=== PATIENT | female | born 1980 | race Caucasian/White ===

== ENCOUNTER 2023-12-02 00:45 | Emergency (ER) | payer BC ==
[2023-12-02] MEDS ORDERED: Aspirin 81 MG Tab.Chew PO ONE (01:01)
[2023-12-02] MEDS ORDERED: Sodium Chloride 0.9% 10 ML Syringe FLUSH PRN (01:01)
[2023-12-02] MEDS ORDERED: Morphine 4 MG/ML Syringe IVPUSH PRN (01:01)
[2023-12-02] MEDS ORDERED: Nitroglycerin 0.4 MG Tab.SL SL PRN (01:01)
[2023-12-02 01:09] LABS: BASOPHILS ABSOLUTE AUTO 0.03 K/uL (0.00-0.10); BASOPHILS PERCENT AUTO 0.4 % (0.1-1.3); CREATININE 0.9 mg/dL (0.6-1.0); EOSINOPHILS ABSOLUTE AUTO 0.24 K/uL (0.00-0.40); EOSINOPHILS PERCENT AUTO 3.2 % (0.0-5.4); ESTIMATED GFR 80 mL/min (>60); HEMATOCRIT 42.2 % (34.3-46.0); IMMATURE GRAN ABSOLUTE AUTO 0.04 K/uL (0.00-0.23); IMMATURE GRAN PERCENT AUTO 0.5 % (0.0-0.7); LYMPHOCYTES ABSOLUTE AUTO 2.99 K/uL (0.8-3.3); LYMPHOCYTES PERCENT AUTO 40.3 % (11.4-47.7); MEAN CORPUSCULAR HEMOGLOBIN 30.8 pg (31.6-35.5); MEAN CORPUSCULAR HGB CONC 33.2 g/dL (31.6-35.5); MONOCYTES ABSOLUTE AUTO 0.35 K/uL (0.20-0.90); MONOCYTES PERCENT AUTO 4.7 % (3.3-12.6); NEUTROPHILS ABSOLUTE AUTO 3.77 K/uL (1.0-7.6); NEUTROPHILS PERCENT AUTO 50.9 % (40.0-78.1); PLATELET COUNT,PLT 182 K/uL (130-375); RED BLOOD CELL COUNT 4.54 M/uL (3.77-5.24); WHITE BLOOD CELL COUNT,WBC 7.4 K/uL (3.2-11.0)
[2023-12-02 03:13] VITALS: BP 113/70; PULSE 69
== END 2023-12-02 03:36 | disposition home or self-care (01) ==
LOC: JP.ED 00:45
DX: R07.89 Other chest pain (principal)
CPT/HCPCS: 36415; 71045; 82565; 83605; 84484; 85025; 85379; 93005; 99285; A9270; 93010